=== PATIENT | female | born 1935 | race Caucasian/White ===

== ENCOUNTER 2016-06-09 05:48 | Outpatient (CLI) | payer MEDICARE ==
[~2016-06-09] VITALS: Ht 163.8 cm; Wt 77.1 kg
[~2016-06-09 05:48] MED LIST: CTRZ10T; PS30T
== END 2016-06-09 15:31 ==
LOC: PREOP 05:48
PROVIDERS: ATTEND Surgery Pediatric Surgery
DX: Z01.818 Encounter for other preprocedural examination (principal); R13.10 Dysphagia, unspecified

== ENCOUNTER 2016-06-17 10:05 | Day surgery (SDC) | payer MEDICARE ==
[~2016-06-17] VITALS: Ht 163.8 cm; Wt 77.1 kg
[2016-06-17] MEDS ORDERED: HURRICAINE EXT TUBE (BENZOCAINE) XX PRN (10:15)
[2016-06-17] MEDS ORDERED: NALOXONE 0.4 MG/ML 1 ML (NARCAN) VIAL IVP PRN (10:15)
[2016-06-17] MEDS ORDERED: LIDOCAINE JELLY 2% (XYLOCAINE) 5 ML TUBE MM PRN (10:15)
[2016-06-17] MEDS ORDERED: FLUMAZENIL (ROMAZICON) 0.1 MG/ML 5 ML VIAL INJ PRN (10:15)
--- NOTE | 2016-06-17 10:17 | Conscious Sedation/ASA ---
Conscious Sedation Pre-Proced Time Reviewed: 10:15 ASA Class: 2 Airway Mallampati Classification: (holy cross appropriate class) I. II. III, IV Lungs Heart ASA score ASA 1: a normal healthy patient ASA 2: a patient with a mild systemic disease (mid diabetes, controlled hypertension, obesity ASA 3: a patient with a severe systemic disease that limits activity (angina , COPD, prior Myocardial infarction) ASA 4: a patient with an incapacitating disease that is a constant threat to life (CHF, renal failure) ASA 5: a moribund patient not expected to survive 24 hrs. (ruptured aneurysm) ASA 6: a declared brain patient whose organs are being harvested. For emergent operations, add the letter E after the classification Grade 2 Sedation Plan: Analgesia, Amnesia, Plan communicated to team members, Discussed options with patient/fam, Discussed risks with patient/fam Note The patient is an appropriate candidate to undergo the planned procedure, sedation, and anesthesia. The patient immediately re-assessed prior to indication. GLENIS ELLISON MD June 17, 2016 10:17 am
--- NOTE | 2016-06-17 10:17 | Progress Note-Pre Operative ---
Pre-Operative Progress Note H&P Reviewed The H&P was reviewed, patient examined and no changes noted. Date H&P Reviewed: June 17, 2016 Time H&P Reviewed: 10:15 Pre-Operative Diagnosis: dysphagia GLENIS ELLISON MD June 17, 2016 10:17 am
[2016-06-17 10:25] VITALS: BP 146/79
[2016-06-17] MEDS ORDERED: ONDANSETRON 4 MG/2 ML (SDV) Z0FRAN IV PRN (10:30)
[2016-06-17] MEDS ORDERED: HYDROcodone/APAP 5 MG/325 MG (LORTAB) TAB PO PRN (10:30)
[2016-06-17] MEDS ORDERED: NS IV 500 ML 500 ML IV PRN (10:30)
[2016-06-17] MEDS ORDERED: morphine INJ 10 MG/ML 1ML (SYR OR VIAL) IV PRN (10:30)
[2016-06-17] MEDS ORDERED: ACETAMINOPHEN 325 MG TABLET/CAPLET (TYLENOL) PO PRN (10:30)
[2016-06-17] MEDS ORDERED: MIDAZOLAM 2 MG/2 ML (VERSED) VIAL ONE ×3 (10:34)
[2016-06-17] MEDS ORDERED: fentaNYL INJECTION 100 MCG/2 ML AMP ONE (10:34)
[2016-06-17] MEDS ORDERED: LIDOCAINE JELLY 2% (XYLOCAINE) 5 ML TUBE ONE (10:34)
[2016-06-17] MEDS ORDERED: HURRICAINE EXT TUBE (BENZOCAINE) ONE (10:34)
[2016-06-17] MEDS: fentaNYL INJECTION 100 MCG/2 ML AMP IVP PRN ×2 (10:45→11:10)
[2016-06-17] MEDS: MIDAZOLAM 2 MG/2 ML (VERSED) VIAL IVP PRN ×2 (11:00→11:18)
--- NOTE | 2016-06-17 11:34 | Progress Note-Post Operative ---
Post-Operative Progess Note Surgeon (s)/Cardiology Nurse (s) Surgeon GLENIS ELLISON MD Cardiology Nurse: none Pre-Operative Diagnosis dysphagia Post-Operative Diagnosis reflux esophagitis(class C with distal sticture), small HH(1.5), moderate gastritis. Procedure & Operative Findings Date of Procedure 06/17/16 Procedure Preformed/Findings EGD with bx and dilatation. Anesthesia Type CS Estimated Blood Loss Estimated blood loss (mL): minimal Specimens/Packing Specimens Removed GE jxn , antrum Packing: none GLENIS ELLISON MD June 17, 2016 11:34 am
[2016-06-17] MEDS ORDERED: PANT40TA2 PO (11:35)
--- NOTE | 2016-06-17 11:36 | Discharge Inst-Surgical ---
D/C Lap Instructions-KIDO New, Converted, or Re-Newed RX: RX on Chart Follow Up Appt in 6 weeks Activity as tolerated High Fiber Diet 25g or more per day Avoid Alcohol, Caffeine, Spicy [place] and Acid foods. Drink 64 fluid oz or more of fluids per day. Symptoms to Report: Fever over 101 degree F, Nausea/Vomiting If any problems/questions: Contact your physician or go to Emergency Room GLENIS ELLISON MD June 17, 2016 11:36 am
[2016-06-17 11:45] VITALS: BP 127/71
[2016-06-17 12:15] VITALS: BP 133/71
[2016-06-17 12:30] VITALS: BP 133/71
--- NOTE | 2016-06-17 14:02 | OPERATIVE REPORT ---
DATE OF SERVICE: 06/17/2016 DATE OF PROCEDURE: 06/17/2016 ATTENDING PHYSICIAN: Dr. Urrutia. PREOPERATIVE DIAGNOSIS: Dysphagia. POSTOPERATIVE DIAGNOSES: Reflux esophagitis class C with a distal esophageal stricture; a small hiatal hernia 1 to 1.5 cm in size; moderate severity gastritis, which was diffuse as well as antral erosions. PROCEDURE: EGD with biopsy and dilatation. SURGEON: Dr. Ellison. ANESTHESIA: Conscious sedation. ESTIMATED BLOOD LOSS: Minimal. FINDINGS: Reflux esophagitis class C with a distal esophageal stricture; small hiatal hernia 1 to 1.5 cm in size; moderate severity gastritis, which was diffuse with two small antral erosions. Pylorus and duodenum appeared normal. DISPOSITION: The patient tolerated the procedure well. INDICATIONS: The patient is an 80-year-old female, who has had issues with dysphagia since 2008. She reports that after food bolus, she would feel substernal pressure sensation and has required a previous EGDs as well as dilatation. She reports that she was started on PPI acid reducers as well as Pepcid; however, she had issues with lightheadedness and discontinued medication. She reports that her dysphagia has become intermittent; however, has worsened in the past several months. DESCRIPTION OF PROCEDURE: The patient was brought to the endoscopy suite, laid in the left lateral decubitus position. After adequate IV pain and sedative medications and conscious sedation anesthesia, the mouthpiece was applied. Endoscope was placed in the mouth, visualizing the pharynx and hypopharyngeal region. Vocal cords, epiglottis and vallecula identified and appeared to be normal. The endoscope was then gently intubated in the esophageal opening, esophagus insufflated. Endoscope was then advanced to the first, second and third portions of the esophagus at the level of the GE junction, a reflux esophagitis class C identified with a distal esophageal stricture. A biopsy was taken with forceps with visualization of good hemostasis. The endoscope was able to pass through the stricture with gentle pressure and then endoscope retroflexed, visualizing a small hiatal hernia approximately 1.5 cm in size. The stricture was also identified through this view. There was also a moderate severity gastritis, which was diffuse and there were 2 small antral erosions as well. A biopsy was taken of one of these erosions with forceps with visualization of good hemostasis. The endoscope was then advanced to the pylorus and the first and second portions of the duodenum, which appeared normal. We then proceeded with the dilatation of the distal esophageal stricture. A CRE fixed guidewire balloon was placed into the stomach and withdrawn to the area of stricture. The balloon was then insufflated at 3 atmosphere of pressure with no resistance. We then proceeded to 4.5 atmospheres of pressure or approximately a 19 mm in diameter with moderate resistance. The patient also showed discomfort, which indicated a successful dilatation. This was left in place for approximately 60 seconds. The balloon was then desufflated and removed. There were no mucosal tears as well as no active bleeding. The endoscope was then slowly withdrawn, taking a second look and suctioning of residual air with no additional findings. The patient tolerated the procedure well. We will proceed with medical management with the necessary lifestyle and diet accommodation including small or more frequent meals, avoidance of eating at night as well as head elevation while lying supine at night. She also needs to avoid caffeinated beverages; spicy, greasy and acidic foods. We will also proceed with another trial of Protonix 40 mg daily. Job ID: [id number] DocumentID: [id number] Dictated Date: 06/17/2016 11:32:39 Head Correction Officer Date: 06/17/2016 12:58:17 Dictated By: GLENIS ELLISON MD
== END 2016-06-17 12:30 | disposition home or self-care (01) ==
LOC: ENDO 10:05
PROVIDERS: ATTEND Surgery Pediatric Surgery
DX: K21.0 Gastro-esophageal reflux disease with esophagitis (principal); K22.2 Esophageal obstruction; K44.9 Diaphragmatic hernia without obstruction or gangrene; K29.60 Other gastritis without bleeding; K25.9 Gastric ulcer, unspecified as acute or chronic, without hemorrhage or perforation; Z96.641 Presence of right artificial hip joint

== ENCOUNTER → 2016-07-15 | Outpatient (CLI) | payer MEDICARE ==
[~2016-07-15] MED LIST changes: +PANT40TA2 PO
--- NOTE | 2016-07-15 11:12 | Diagnostic Imaging Report ---
INDICATION: Proteinuria. TECHNIQUE: Multiple real-time grayscale sonographic images were obtained of the kidneys. COMPARISON: None. FINDINGS: RIGHT KIDNEY: 9.0 x 4.8 x 4.5 cm. There is suggestion of some thinning of the right renal parenchyma. No hydronephrosis. LEFT KIDNEY: 8.9 x 4.6 x 3.9 cm. There does appear to be an overall somewhat thinned appearance about the left renal parenchyma with increased echogenicity. URINARY BLADDER: Relatively unremarkable in appearance. The ureteral jets, however, are not visualized. IMPRESSION: 1. Diffuse thinning of the renal parenchyma. There is also some increased echogenicity of the left renal parenchyma which may be reflective of underlying medical renal disease. No hydronephrosis or obstruction. Dictated by: Dictated on workstation # [id number]
== END ==
LOC: RAD 08:59
PROVIDERS: ATTEND Family Medicine
DX: R80.9 Proteinuria, unspecified (principal)
CPT/HCPCS: 76770

== ENCOUNTER → 2016-08-28 | Outpatient (CLI) | payer MEDICARE | LOC: RAD 12:58 | PROVIDERS: ATTEND Family Medicine | DX: Z12.31 Encounter for screening mammogram for malignant neoplasm of breast (principal) | CPT/HCPCS: 77067 ==

== ENCOUNTER 2017-08-22 08:51 | Emergency (ER) | payer MEDICARE ==
[~2017-08-22] VITALS: Ht 167.6 cm; Wt 77.1 kg
--- NOTE | 2017-08-22 09:24 | ED Upper Extremity ---
General Chief Complaint: Upper Extremity Stated Complaint: SWOLLEN WRIST Nursing Triage Note: PT AMB TO ROOM 5 W/O DIFFICULTY. A&OX4. CO RT WRIST PAIN UPON MOVEMENT. PT REPORTS SHE WAS WATERING WILLS LAST NIGHT AND FELL FORWARD ONTO HER RT WRIST. DENIES LOC. Nursing Sepsis Screen: No Definite Risk Source: patient Exam Limitations: no limitations History of Present Illness Date Seen by Provider: Aug 22, 2017 Time Seen by Provider: 09:17 Initial Comments The patient is an 81-year-old white female known to me. She was working in her garden last evening and lost her balance and fell forward. She had immediate pain in the area of the lower third of the radius on the right. She was able to use the arm. Later when she went to bed she found that sleep was fitful because of pain. She continues to be able to use the arm but the pain continues as well. Onset: just prior to arrival Pain/Injury Location: right forearm Method of Injury: fell Allergies and Home Medications Allergies Coded Allergies: No Known Drug Allergies (Unverified , 06/09/16) Home Medications Pantoprazole Sodium 40 Mg Tablet.dr, 40 MG PO DAILY Prescribed by: GLENIS ELLISON on 06/17/16 1135 Patient Home Medication List Home Medication List Reviewed: Yes Constitutional: see HPI EENTM: no symptoms reported Respiratory: no symptoms reported Cardiovascular: no symptoms reported Gastrointestinal: no symptoms reported Genitourinary: no symptoms reported Musculoskeletal: see HPI Skin: no symptoms reported Psychiatric/Neurological: No Symptoms Reported Past Deupnpt-Slialf-Vrhrwx Hx Patient Social History Alcohol Use: Denies Use Recreational Drug Use: No Smoking Status: Never a Smoker 2nd Hand Smoke Exposure: No Recent Foreign Travel: No Contact w/Someone Who Travel: No Recent Infectious Disease Expo: No Recent Hopitalizations: Yes (SEP 2015-HIP REPLACEMENT) Physical Abuse: No Sexual Abuse: No Immunizations Up To Date Date of Pneumonia Vaccine: June 09, 2014 Date of Influenza Vaccine: Nov 18, 2015 Seasonal Allergies Seasonal Allergies: Yes Past Medical History Surgeries: Yes (RT HIP. LT KNEE.) Joint Replacement, Orthopedic Respiratory: No Cardiac: No Neurological: No Reproductive Disorders: No Sexually Transmitted Disease: No HIV/AIDS: No Gastrointestinal: Yes (DYSPHAGIA) Musculoskeletal: Yes Arthritis Endocrine: No HEENT: No Loss of Vision: Bilateral Hearing Impairment: Denies Cancer: No Psychosocial: No Nursing Suicide Risk Score: 0 Integumentary: No Blood Disorders: No Adverse Reaction/Blood Tranf: No (N/A) Physical Exam Vital Signs Vital Signs - First Documented 08/22/17 08:55 Temp 97.1 Pulse 77 Resp 15 B/P (MAP) 147/86 (106) Pulse Ox 97 O2 Delivery Room Air O2 Flow Rate 0 Capillary Refill : Less Than 3 Seconds Height, Weight, BMI Height: 5'6.00" Weight: 170lbs. 0.0oz. 77.063852ps; 28.7 BMI Method:Stated General Appearance: mild distress HEENT: normal ENT inspection Neck: non-tender, full range of motion Cardiovascular: normal peripheral pulses, regular rate, rhythm, no edema, no gallop, no JVD, no murmur Respiratory: chest non-tender, lungs clear, normal breath sounds, no respiratory distress, no accessory muscle use There is no deformity of the right wrist or forearm. There are some tenderness to palpation over the right distal third of the radius. Squad Sergeant is normal. She is able to dorsiflex. Progress/Results/Core Measures Results/Orders My Orders Orders - VENKAT RAINES MD Wrist, Right, 3 Views Or More (08/22/17 09:13) Vital Signs/I&O 08/22/17 08:55 Temp 97.1 Pulse 77 Resp 15 B/P (MAP) 147/86 (106) Pulse Ox 97 O2 Delivery Room Air O2 Flow Rate 0 Blood Pressure Mean: 106 Departure Communication (Admissions) X-ray as reviewed by me shows a nondisplaced fracture in the distal right ulna Impression Primary Impression: nondisplaced fracture right distal ulna Disposition: 01 HOME, SELF-CARE Condition: Stable/Unchanged Departure-Patient Inst. Decision time for Depature: 09:38 Referrals: NOEL REINOSO DO (PCP/Family) Primary Care Physician Patient Instructions: Wrist Fracture (DC) Add. Discharge Instructions: All discharge instructions reviewed with patient and/or family. Voiced understanding. You will need to use the brace for 4-6 weeks. You may remove the brace to bathe. See your provider in 2-3 weeks for a follow-up x-ray. VENKAT RAINES MD Aug 22, 2017 09:24
--- NOTE | 2017-08-22 09:46 | Diagnostic Imaging Report ---
INDICATION: Status post fall while watering john. TECHNIQUE: 3 views of the right wrist 9:44 AM CORRELATION STUDY: None FINDINGS: There is a relatively nondisplaced transversely oriented fracture of the distal ulnar diaphysis. Distal radius is intact. There is rather advanced degenerative changes about the right wrist with joint space narrowing. There is more focal narrowing and sclerosis at the mid radial carpal row as well as at the first carpometacarpal articulation. Soft tissue swelling is noted in the area of the fracture. IMPRESSION: 1. Nondisplaced fracture of the distal right ulna with associated soft tissue swelling. Dictated by: Dictated on workstation # [id number]
[2017-08-22 09:55] VITALS: BP 147/86
--- OUTSIDE RECORDS SUMMARY | 2017-08-23 10:27 | XMS REPORT ---
Author Author KENDY MONTERROSO Organization [facility] Address [address] [place] [address] Care Team Providers Care Wheel Truer Name Role Phone KENDY MONTERROSO Unavailable PROBLEMS Type Condition ICD9-CM Code [id number] Code Onset Dates Condition Status SNOMED Code Problem Need for prophylactic vaccination and inoculation, Influenza V04.81 Active [id number] ALLERGIES No Information ENCOUNTERS Encounter Location Date Diagnosis [address], [place] [address] Nov, Encounter for immunization Z23 [address], [place] [address] Nov, [address], [place] [address] Nov, IMMUNIZATIONS Vaccine Route Administration Date Status TDAP (BOOSTRIX) IM Intramuscular Dec 04, 2016 Administered SOCIAL HISTORY Never Assessed REASON FOR VISIT TDAP -- li christina PLAN OF CARE VITAL SIGNS MEDICATIONS Unknown Medications RESULTS No Results PROCEDURES Procedure Date Ordered Result Body Site TDAP (BOOSTRIX) Dec 04, 2016 SINGLE IMMUNIZATION ADMIN Dec 04, 2016 INSTRUCTIONS MEDICATIONS ADMINISTERED No Known Medications
--- OUTSIDE RECORDS SUMMARY | 2017-08-23 10:27 | XMS REPORT | Continuity of Care Document ---
Author Author [facility] Organization [facility] Address Unknown Phone Unavailable Allergies Active Description Code Type Severity Reaction Onset Reported/Identified Relationship to Patient Clinical Status Yes No Known Drug Allergies [id number] Drug Allergy Mild N/A 11/20/2008 Yes No Known Drug Allergies [id number] Drug Allergy Unknown N/A 06/09/2016 Medications There is no data. Problems Date Dx Coded Attending Type Code Diagnosis Diagnosed By 01/07/1339 BROOKENDER DO NOEL S Ot M25.551 PAIN IN RIGHT HIP 01/07/1339 BROOKENDER DO, NOEL S Ot M54.5 LOW BACK PAIN 01/07/1339 BROOKENDER DO, NOEL S Ot M62.81 MUSCLE WEAKNESS (GENERALIZED) 09/13/2014 ANNA PEREZ MD Ot V76.12 07/01/2015 ORENDER DO, NOEL S Ot M25.551 PAIN IN RIGHT HIP 07/01/2015 ORENDER DO, NOEL S Ot M54.5 LOW BACK PAIN 07/01/2015 ORENDER DO, NOEL S Ot M62.81 MUSCLE WEAKNESS (GENERALIZED) 07/10/2015 ORENDER DO, NOEL S Ot M25.551 PAIN IN RIGHT HIP 07/10/2015 ORENDER DO, NOEL S Ot M54.5 LOW BACK PAIN 07/10/2015 ORENDER DO, NOEL S Ot M62.81 MUSCLE WEAKNESS (GENERALIZED) 07/30/2015 ORENDER DO, NOEL S Ot M25.551 PAIN IN RIGHT HIP 07/30/2015 ORENDER DO, NOEL S Ot M54.5 LOW BACK PAIN 08/05/2015 ORENDER DO, NOEL S Ot M25.551 PAIN IN RIGHT HIP 08/05/2015 ORENDER DO, NOEL S Ot M54.5 LOW BACK PAIN 08/05/2015 ORENDER DO, NOEL S Ot M62.81 MUSCLE WEAKNESS (GENERALIZED) 08/14/2015 ORENDER DO, NOEL S Ot M41.86 OTHER FORMS OF SCOLIOSIS, LUMBAR REGION 08/14/2015 ORENDER DO, NOEL S Ot M47.816 SPONDYLOSIS W/O MYELOPATHY OR RADICULOPA 08/27/2015 ORENDER DO, NOEL S Ot M25.551 PAIN IN RIGHT HIP 08/27/2015 ORENDER DO, NOEL S Ot M54.5 LOW BACK PAIN 08/28/2015 ORENDER DO, NOEL S Ot Z12.31 ENCNTR SCREEN MAMMOGRAM FOR MALIGNANT NE 08/29/2015 ORENDER DO, NOEL S Ot Z12.31 ENCNTR SCREEN MAMMOGRAM FOR MALIGNANT NE 08/30/2015 ORENDER DO, NOEL S Ot M41.86 OTHER FORMS OF SCOLIOSIS, LUMBAR REGION 08/30/2015 ORENDER DO, NOEL S Ot M47.816 SPONDYLOSIS W/O MYELOPATHY OR RADICULOPA 09/03/2015 [facility] Ot Z12.31 ENCNTR SCREEN MAMMOGRAM FOR MALIGNANT NE 09/10/2015 ORENDER DO, NOEL S Ot M25.551 PAIN IN RIGHT HIP 09/10/2015 ORENDER DO, NOEL S Ot M54.5 LOW BACK PAIN 10/01/2015 ORENDER DO, NOEL S Ot Z12.31 ENCNTR SCREEN MAMMOGRAM FOR MALIGNANT NE 12/03/2015 ORENDER DO, NOEL S Ot Z13.6 ENCOUNTER FOR SCREENING FOR CARDIOVASCUL 12/03/2015 ORENDER DO, NOEL S Ot Z13.6 ENCOUNTER FOR SCREENING FOR CARDIOVASCUL 12/03/2015 ORENDER DO, NOEL S Ot Z13.6 ENCOUNTER FOR SCREENING FOR CARDIOVASCUL 12/03/2015 ORENDER DO, NOEL S Ot Z13.6 ENCOUNTER FOR SCREENING FOR CARDIOVASCUL 12/03/2015 ORENDER DO, NOEL S Ot Z13.6 ENCOUNTER FOR SCREENING FOR CARDIOVASCUL 12/03/2015 ORENDER DO, NOEL S Ot Z13.6 ENCOUNTER FOR SCREENING FOR CARDIOVASCUL 12/04/2015 Ot V76.12 OTH SCREEN MAMMO-MALIGN NEOPLASM OF SUNDAR 12/04/2015 Ot V76.12 OTH SCREEN MAMMO-MALIGN NEOPLASM OF SUNDAR 12/04/2015 MYLA ALTMAN, HERO Miles Ot V76.12 OTH SCREEN MAMMO-MALIGN NEOPLASM OF SUNDAR 12/04/2015 CODY SARGENT, AMADO Ot 724.2 LUMBAGO 12/04/2015 MYLA ALTMAN, HERO Miles Ot V76.12 OTH SCREEN MAMMO-MALIGN NEOPLASM OF SUNDAR 12/04/2015 ANA ALTMAN, ANNA Mary Ot V76.12 OTH SCREEN MAMMO-MALIGN NEOPLASM OF SUNDAR 12/04/2015 QING REINOSO DOLINE S Ot M41.86 OTHER FORMS OF SCOLIOSIS, LUMBAR REGION 12/04/2015 QING REINOSO DOLINE S Ot M47.816 SPONDYLOSIS W/O MYELOPATHY OR RADICULOPA 12/04/2015 QING REINOSO DOLINE S Ot M25.551 PAIN IN RIGHT HIP 12/04/2015 QING REINOSO DOLINE S Ot M54.5 LOW BACK PAIN 12/04/2015 NOEL REINOSO DO S Ot Z12.31 ENCNTR SCREEN MAMMOGRAM FOR MALIGNANT NE 12/04/2015 SLIME REINOSO DOQUELINE S Ot Z13.6 ENCOUNTER FOR SCREENING FOR CARDIOVASCUL 12/24/2015 SLIME REINOSO DOQUELINE S Ot Z13.6 ENCOUNTER FOR SCREENING FOR CARDIOVASCUL 01/06/2016 NOEL REINOSO DO S Ot Z13.6 ENCOUNTER FOR SCREENING FOR CARDIOVASCUL 06/17/2016 GLENIS ELLISON MD Ot K21.0 GASTRO-ESOPHAGEAL REFLUX DISEASE WITH ES 06/17/2016 GLENIS ELLISON MD, Ot K22.2 ESOPHAGEAL OBSTRUCTION 06/17/2016 GLENIS ELLISON MD Ot K25.9 GASTRIC ULCER, UNSP ACUTE OR CHRONIC, 06/17/2016 GLENIS ELLISON MD Ot K29.60 OTHER GASTRITIS WITHOUT BLEEDING 06/17/2016 GLENIS ELLISON MD, Ot K44.9 DIAPHRAGMATIC HERNIA WITHOUT OBSTRUCTION 06/17/2016 GLENIS ELLISON MD Ot Z96.641 PRESENCE OF RIGHT ARTIFICIAL HIP JOINT 06/18/2016 KIDO MD, TAKAAKI Ot K21.0 GASTRO-ESOPHAGEAL REFLUX DISEASE WITH ES 06/18/2016 GLENIS ELLISON MD Ot K22.2 ESOPHAGEAL OBSTRUCTION 06/18/2016 GLENIS ELLISON MD Ot K25.9 GASTRIC ULCER, UNSP ACUTE OR CHRONIC, 06/18/2016 GLENIS ELLISON MD Ot K29.60 OTHER GASTRITIS WITHOUT BLEEDING 06/18/2016 GLENIS ELLISON MD Ot K44.9 DIAPHRAGMATIC HERNIA WITHOUT OBSTRUCTION 06/18/2016 GLENIS ELLISON MD Ot Z96.641 PRESENCE OF RIGHT ARTIFICIAL HIP JOINT 07/03/2016 GLENIS ELLISON MD Ot K21.0 GASTRO-ESOPHAGEAL REFLUX DISEASE WITH ES 07/03/2016 GLENIS ELLISON MD Ot K22.2 ESOPHAGEAL OBSTRUCTION 07/03/2016 GLENIS ELLISON MD Ot K25.9 GASTRIC ULCER, UNSP ACUTE OR CHRONIC, 07/03/2016 GLENIS ELLISON MD Ot K29.60 OTHER GASTRITIS WITHOUT BLEEDING 07/03/2016 GLENIS ELLISON MD Ot K44.9 DIAPHRAGMATIC HERNIA WITHOUT OBSTRUCTION 07/03/2016 GLENIS ELLISON MD Ot Z96.641 PRESENCE OF RIGHT ARTIFICIAL HIP JOINT 07/17/2016 ORENDER DO, NOEL S Ot R80.9 PROTEINURIA, UNSPECIFIED 08/04/2016 ORENDER DO, NOEL S Ot R80.9 PROTEINURIA, UNSPECIFIED 08/12/2016 ORENDER DO, NOEL S Ot R80.9 PROTEINURIA, UNSPECIFIED 09/03/2016 ORENDER DO, NOEL S Ot Z12.31 ENCNTR SCREEN MAMMOGRAM FOR MALIGNANT NE 09/21/2016 ORENDER DO, NOEL S Ot Z12.31 ENCNTR SCREEN MAMMOGRAM FOR MALIGNANT NE Procedures There is no data. Results There is no data. Encounters ACCT No. Visit Date/Time Discharge Status Pt. Type Provider Facility Loc./Unit Complaint [id number] 08/28/2016 12:58:00 08/28/2016 23:59:59 CLS Outpatient ARLETH DOSLIMENOEL S [facility] RAD SCREENING Z12.31 [id number] 07/15/2016 08:59:00 07/15/2016 23:59:59 CLS Outpatient ORENDER DO, NOEL S [facility] RAD R80.9 [id number] 06/17/2016 10:05:00 06/17/2016 12:30:00 DIS Outpatient GLENIS ELLISON MD [facility] ENDO DYSPHAGIA [id number] 06/09/2016 05:48:00 06/09/2016 15:31:00 DIS Outpatient GLENIS ELLISON MD [facility] PREOP DYSPHAGIA [id number] 12/02/2015 14:11:00 12/02/2015 23:59:59 CLS Outpatient ORENDER DO, NOEL S [facility] CARD Z13.6 [id number] 08/28/2015 15:02:00 08/28/2015 23:59:59 CLS Outpatient ORENDER DO, NOEL S [facility] RAD SCREENING [id number] 08/05/2015 12:51:00 08/05/2015 13:40:00 DIS Outpatient BROOKENDER DO NOEL S [facility] REHAB LBP;R HIP PAIN; LEG WEAKNESS [id number] 07/29/2015 15:38:00 07/29/2015 23:59:59 CLS Outpatient BROOKENDER DO, NOEL S [facility] RAD LOW BACK PAIN [id number] 07/24/2015 10:15:00 07/24/2015 23:59:59 CLS Outpatient ORENDER DO, NOEL S [facility] RAD LOW BACK PAIN [id number] 08/22/2014 15:21:00 08/22/2014 23:59:59 CLS Outpatient ANNA PEREZ MD [facility] RAD SCREENING [id number] 07/17/2013 15:31:00 07/17/2013 23:59:59 CLS Outpatient HERO LANZA MD [facility] RAD SCREENING [id number] 07/15/2012 12:27:00 07/15/2012 23:59:59 CLS Outpatient AMADO ROSS DC [facility] RAD LUMBARGO [id number] 07/15/2012 12:22:00 07/15/2012 23:59:59 CLS Outpatient MYLA ALTMAN HERO Miles [facility] RAD SCREENING [id number] 06/17/2011 15:01:00 Document Registration [id number] 07/02/2010 09:54:00 Document Registration [id number] 08/22/2014 15:22:34 ACT Document Registration [id number] 12/04/2016 13:20:00 12/04/2016 23:59:59 CLS Outpatient MICHELLE DEL [facility]IO [facility] 05/201612/14/2016 10:08:13 12/14/2016 23:59:59 CLS Outpatient
== END 2017-08-22 09:57 | disposition home or self-care (01) ==
LOC: EDUNIT# 08:51 → ER 08:54
DX: S52.601A Unspecified fracture of lower end of right ulna, initial encounter for closed fracture (principal); Z96.641 Presence of right artificial hip joint; Z96.652 Presence of left artificial knee joint; W01.198A Fall on same level from slipping, tripping and stumbling with subsequent striking against other object, initial encounter
CPT/HCPCS: 73110

== ENCOUNTER → 2018-05-06 | Outpatient (CLI) | payer MEDICARE | LOC: RAD 14:31 | PROVIDERS: ATTEND Family Medicine | DX: Z12.31 Encounter for screening mammogram for malignant neoplasm of breast (principal) | CPT/HCPCS: 77067 ==

== ENCOUNTER → 2018-08-08 | Outpatient (CLI) | payer MEDICARE | LOC: CARD 10:38 | PROVIDERS: ATTEND Nurse Practitioner Family | DX: R07.9 Chest pain, unspecified (principal) | CPT/HCPCS: 93005 ==

== ENCOUNTER → 2018-09-13 | Outpatient (CLI) | payer MEDICARE | LOC: CARD 10:35 | PROVIDERS: ATTEND Internal Medicine Interventional Cardiology | DX: R07.89 Other chest pain (principal); R94.31 Abnormal electrocardiogram [ECG] [EKG] | CPT/HCPCS: 93306 ==

== ENCOUNTER → 2018-10-13 | Outpatient (CLI) | payer MEDICARE ==
[~2018-10-13] MED LIST changes: +CATHETER FLUSH 10 ML SYR IV PRN; +REGADENOSON 0.4 MG/5 ML SYR (LEXISCAN) IV ONE
[2018-10-13 11:06] VITALS: BP 173/86
[2018-10-13 11:08] VITALS: BP 206/113
--- NOTE | 2018-10-14 12:31 | Cardiology Stress Test Report ---
Stress Test Report Type of NM Stress Test: Test Type: LEXISCAN 0.4MG/5ML Date of Procedure/Referring: Date of Procedure: Oct 13, 2018 PCP Jd Oneill MD Admitting Physician Daria Urrutia DO Indications: Chest pain Baseline Heart Rate: 55 Baseline Blood Pressure: Blood Pressure Systolic: 206 Blood Pressure Diastolic: 113 Baseline EKG: Baseline EKG: sinus rhythm Summary & Conclusion: Summary: The patient was brought to the stress lab after informed consent was taken. Stress test was performed according to the Lexiscan protocol. 0.4 mg of IV Lexiscan was given. Low-grade exercise was performed. Baseline EKG showed sinus rhythm at 55 BPM. Initial blood pressure was 173/86 mmHg. Maximum heart rate was 89 bpm and blood pressure 223/111 mmHg, repeat blood pressure 196/110 mmHg. Patient did not have any chest pain, arrhythmias or ST segment changes during the stress test. 10.77 mCi of Myoview were given for rest imaging and 31.2 mCi of Myoview given for stress imaging. Transient ischemic dilatation score 1.07 , Normal myocardial perfusion imaging during rest and stress. Conclusion: Pharmacological stress test was negative for ischemia. Normal myocardial perfusion imaging during rest and stress. Jd ONEILL MD Oct 14, 2018 12:31
== END ==
LOC: CARD 09:23
PROVIDERS: ATTEND Internal Medicine Interventional Cardiology
DX: R07.89 Other chest pain (principal); R94.31 Abnormal electrocardiogram [ECG] [EKG]

== ENCOUNTER → 2019-11-08 | Outpatient (CLI) | payer MEDICARE ==
[~2019-11-08] MED LIST changes: -CATHETER FLUSH 10 ML SYR IV PRN; -REGADENOSON 0.4 MG/5 ML SYR (LEXISCAN) IV ONE
--- NOTE | 2019-11-09 09:56 | Diagnostic Imaging Report ---
INDICATION: Routine screening. Comparison is made to prior mammogram 05/06/2018 and 08/28/2016. 2-D and 3-D bilateral screening mammography was performed with CAD. Scattered fibroglandular densities are identified bilaterally. Benign calcifications in both breasts appear stable. Intraparenchymal lymph node outer left breast is stable. No spiculated mass or malignant appearing microcalcifications are seen. Axillae are unremarkable. IMPRESSION: BI-RADS Category 2 No mammographic features suspicious for malignancy are identified. ACR BI-RADS Category 2: Benign findings. Result letter will be mailed to the patient. Note: At least 10% of breast cancer is not imaged by mammography. Dictated by: Dictated on workstation # [id number]
== END ==
LOC: RAD 12:33
PROVIDERS: ATTEND Family Medicine
DX: Z12.31 Encounter for screening mammogram for malignant neoplasm of breast (principal)
CPT/HCPCS: 77063; 77067

== ENCOUNTER 2020-11-05 05:41 | Outpatient (CLI) | payer MEDICARE ==
[~2020-11-05] VITALS: Ht 167.7 cm; Wt 78.2 kg
[2020-11-06] MEDS ORDERED: MV-M1TAB57 PO (09:01)
== END 2020-11-06 09:03 | disposition home or self-care (01) ==
LOC: PREOP 05:41
PROVIDERS: ATTEND Specialist
DX: Z01.818 Encounter for other preprocedural examination (principal)

== ENCOUNTER 2020-11-08 08:05 | Day surgery (SDC) | payer MEDICARE ==
[~2020-11-08] VITALS: Ht 167.7 cm; Wt 78.2 kg
[~2020-11-08 08:05] MED LIST changes: +MV-M1TAB57 PO
[2020-11-08] MEDS ORDERED: MIDAZOLAM 2 MG/2 ML (VERSED) VIAL ONE (08:23)
[2020-11-08] MEDS ORDERED: TIMOLOL MALEATE 0.5% 5 ML (TIMOPTIC) BTL OU PRN (08:30)
[2020-11-08] MEDS ORDERED: MOXIFLOXACIN OPHTH SOLN 5 MG/ML 0.3 ML SYRINGE OP ONE (08:30)
[2020-11-08] MEDS ORDERED: POVIDONE (BETADINE) OPHTH SOLN 5% 30 ML OP ONE (08:30)
[2020-11-08] MEDS ORDERED: LIDOCAINE PF 1% 2 ML VIAL IR PRN (08:30)
[2020-11-08] MEDS: TETRACAINE 0.5% OPHTH SOLN 4 ML BTL (SINGLE DOSE ONLY) OU PRN ×4 (08:37→08:53)
[2020-11-08] MEDS: PHENYLEPHRINE 10% OPHTH (NEO-SYN) 5 ML BTL OU SCH ×3 (08:43→08:53)
[2020-11-08] MEDS: TROPICAMIDE 1% OPH SOLN (MYDRIACYL) 15 ML BTL OP SCH ×3 (08:43→08:53)
[2020-11-08 08:44] VITALS: BP 133/75
--- NOTE | 2020-11-08 09:06 | Ophthalmologist Pre-Op Note ---
Pre-Operative Progress Note H&P Reviewed The H&P was reviewed, patient examined and no changes noted. Date H&P Reviewed: Nov 08, 2020 Time H&P Reviewed: 09:06 Pre-Op Dx Cataract, Right Eye CAT SANCHEZ MD Nov 08, 2020 09:06
--- NOTE | 2020-11-08 09:27 | Ophthalmology Operative Report ---
Cataract removal/placement IOL PREOPERATIVE DIAGNOSIS: Cataract Right Eye POSTOPERATIVE DIAGNOSIS: Cataract Right Eye PROCEDURE: Cataract removal and placement of posterior chamber implant, right eye SURGEON: Chapito Sanchez ANESTHESIA: Topical with sedation COMPLICATIONS: None ESTIMATED BLOOD LOSS: Minimal DESCRIPTION OF PROCEDURE: After proper informed consent was obtained, the patient, a 85 female, was taken to the Operating Room and the right eye was anesthetized with tetracaine. The right eye was then prepped and draped in the usual manner. A wire lid speculum was placed. A paracentesis was made at the left hand position. Preservative free lidocaine was injected into the anterior chamber followed by viscoelastic. A clear corneal incision was made in the temporal position. A capsulorrhexis was preformed and the central nuclear and cortical material were removed. The posterior capsule was polished and Anibal 20.0 AU00T0 IOL was placed into the capsular bag. The residual viscoelastic was aspirated and balanced saline solution was injected into the anterior chamber. Moxifloxacin was injected into the anterior chamber. The wound was checked and found to be water tight. The patient tolerated the procedure well without complications. CHAPITO SANCHEZ MD Nov 08, 2020 09:27
[2020-11-08] MEDS ORDERED: acetaZOLAMIDE ER 500 MG CAP (DIAMOX SEQUELS) PO ONE (09:30)
[2020-11-08 09:35] VITALS: BP 144/61
--- NOTE | 2020-11-08 13:54 | Anesthesia-General Post-Op ---
MAC Patient Condition Mental Status/LOC: Same as Preop Cardiovascular: Satisfactory Nausea/Vomiting: Absent Respiratory: Satisfactory Pain: Controlled Complications: Absent Post Op Complications Complications None Follow Up Care/Instructions Patient Instructions None needed. Anesthesiology Discharge Order Discharge Order Patient is doing well, no complaints, stable vital signs, no apparent adverse anesthesia problems. No complications reported per nursing. PING NEFF CRNA Nov 08, 2020 13:54
== END 2020-11-08 09:48 ==
LOC: SDC 08:05
PROVIDERS: ATTEND Specialist
DX: H25.11 Age-related nuclear cataract, right eye (principal); Z79.899 Other long term (current) drug therapy
CPT/HCPCS: 66984; V2632

== ENCOUNTER 2020-12-09 05:54 | Outpatient (CLI) | payer MEDICARE ==
[~2020-12-09] VITALS: Ht 167.7 cm; Wt 78.2 kg
== END 2020-12-10 15:15 | disposition home or self-care (01) ==
LOC: PREOP 05:54
PROVIDERS: ATTEND Specialist
DX: Z01.818 Encounter for other preprocedural examination (principal)

== ENCOUNTER 2020-12-13 09:44 | Day surgery (SDC) | payer MEDICARE ==
[~2020-12-13] VITALS: Ht 167 cm; Wt 78.2 kg
[2020-12-13] MEDS ORDERED: MOXIFLOXACIN OPHTH SOLN 5 MG/ML 0.3 ML SYRINGE OP ONE (10:00)
[2020-12-13] MEDS ORDERED: LIDOCAINE PF 1% 2 ML VIAL IR PRN (10:00)
[2020-12-13] MEDS ORDERED: TIMOLOL MALEATE 0.5% 5 ML (TIMOPTIC) BTL OU PRN (10:00)
[2020-12-13] MEDS: TETRACAINE 0.5% OPHTH SOLN 4 ML BTL (SINGLE DOSE ONLY) OU PRN ×4 (10:00→10:16)
[2020-12-13] MEDS ORDERED: POVIDONE (BETADINE) OPHTH SOLN 5% 30 ML OP ONE (10:00)
[2020-12-13] MEDS: PHENYLEPHRINE 10% OPHTH (NEO-SYN) 5 ML BTL OU SCH ×3 (10:06→10:16)
[2020-12-13] MEDS ORDERED: MIDAZOLAM 2 MG/2 ML (VERSED) VIAL ONE (10:06)
[2020-12-13] MEDS: TROPICAMIDE 1% OPH SOLN (MYDRIACYL) 15 ML BTL OP SCH ×3 (10:06→10:16)
[2020-12-13 10:08] VITALS: BP 132/77
--- NOTE | 2020-12-13 10:22 | Ophthalmologist Pre-Op Note ---
Pre-Operative Progress Note H&P Reviewed The H&P was reviewed, patient examined and no changes noted. Date H&P Reviewed: Dec 13, 2020 Time H&P Reviewed: 10:22 Pre-Op Dx Cataract, Left Eye CAT SANCHEZ MD Dec 13, 2020 10:22
--- NOTE | 2020-12-13 10:51 | Ophthalmology Operative Report ---
Cataract removal/placement IOL PREOPERATIVE DIAGNOSIS: Cataract Left Eye POSTOPERATIVE DIAGNOSIS: Cataract Left Eye PROCEDURE: Cataract removal and placement of posterior chamber implant, left eye SURGEON: Chapito Sanchez ANESTHESIA: Topical with sedation COMPLICATIONS: None ESTIMATED BLOOD LOSS: Minimal DESCRIPTION OF PROCEDURE: After proper informed consent was obtained, the patient, a 85 female, was taken to the Operating Room and the left eye was anesthetized with tetracaine. The left eye was then prepped and draped in the usual manner. A wire lid speculum was placed. A paracentesis was made at the left hand position. Preservative free lidocaine was injected into the anterior chamber followed by viscoelastic. A clear corneal incision was made in the temporal position. A capsulorrhexis was preformed and the central nuclear and cortical material were removed. The posterior capsule was polished and an Anibal 13.0 AU00T0 was placed into the capsular bag. The residual viscoelastic was aspirated and balanced saline solution was injected into the anterior chamber. Moxifloxacin was injected into the anterior chamber. The wound was checked and found to be water tight. The patient tolerated the procedure well without complications. CHAPITO SANCHEZ MD Dec 13, 2020 10:51
[2020-12-13 10:58] VITALS: BP 113/60
[2020-12-13] MEDS ORDERED: acetaZOLAMIDE ER 500 MG CAP (DIAMOX SEQUELS) PO ONE (11:30)
--- NOTE | 2020-12-13 12:27 | Anesthesia-General Post-Op ---
MAC Patient Condition Mental Status/LOC: Same as Preop Cardiovascular: Satisfactory Nausea/Vomiting: Absent Respiratory: Satisfactory Pain: Controlled Complications: Absent Post Op Complications Complications None Follow Up Care/Instructions Patient Instructions None needed. Anesthesiology Discharge Order Discharge Order Patient is doing well, no complaints, stable vital signs, no apparent adverse anesthesia problems. No complications reported per nursing. JAMIE RIVERA CRNA Dec 13, 2020 12:27
== END 2020-12-13 11:01 ==
LOC: SDC 09:44
PROVIDERS: ATTEND Specialist
DX: H25.12 Age-related nuclear cataract, left eye (principal); Z79.899 Other long term (current) drug therapy
CPT/HCPCS: 66984; V2632

== ENCOUNTER → 2021-08-13 | Outpatient (CLI) | payer MEDICARE ==
--- NOTE | 2021-08-14 09:41 | Diagnostic Imaging Report ---
INDICATION: Routine screening. Comparison is made with prior mammogram 11/08/2019 and 05/06/2018. 2-D and 3-D bilateral screening mammography was performed with CAD. CAD is utilized. The current study was also evaluated with a Computer Aided Detection (CAD) system. Both breasts are heterogeneously dense, limiting the sensitivity of mammography. Intraparenchymal lymph node outer left breast is stable. There are scattered benign parenchymal and vascular calcifications throughout both breasts. No spiculated mass or malignant-appearing microcalcifications are seen. Axillae are unremarkable. IMPRESSION: BI-RADS Category 2 No mammographic features suspicious for malignancy are identified. ACR BI-RADS Category 2: Benign findings. Result letter will be mailed to the patient. Note: At least 10% of breast cancer is not imaged by mammography. Dictated by: Dictated on workstation # [id number]
== END ==
LOC: RAD 14:44
PROVIDERS: ATTEND Family Medicine
DX: Z12.31 Encounter for screening mammogram for malignant neoplasm of breast (principal)
CPT/HCPCS: 77063; 77067

== ENCOUNTER 2021-10-26 08:52 | Emergency (ER) | payer MEDICARE ==
[~2021-10-26] VITALS: Ht 167 cm; Wt 79.0 kg
--- NOTE | 2021-10-26 09:46 | ED General ---
General Chief Complaint: Lower Extremity Stated Complaint: RIGHT LEG WEAKNESS Nursing Triage Note: PT AMB TO RM 6 W W/C PT CO OF R LEG WEAKNESS, STATES POSSIBLE INJURED ON WEDNESDAY DURING EXCERCISE. CAUSES PAIN WHEN TRIES TO GO UP STAIRS UP TO AN 8/10. PT STATES USING WALKER BECAUSE IT FEELS LIKE LEG WILL GIVE OUT Source of Information: Patient Exam Limitations: No Limitations (SARA MAHMOOD A MED STUDENT) History of Present Illness Date Seen by Provider: Oct 26, 2021 Time Seen by Provider: 09:38 Initial Comments Mckenzie Whiteside is an 86 yo female who presents for right leg weakness. She walked from the waiting room with a walker and showed non-antalgic gait with no foot drop or dragging of leg. Pt has hx of scoliosis, right hip replacement, left knee replacement and chronic back pain for which she follows up with Dr. Ortiz at [address] Pt reports on Wednesday she was exercising at [facility] gym and she noticed she couldn't do as many steps on the stair climber as usual and her right hip started hurting. She also felt as if this leg was "giving out on her". On Wednesday she went to the [facility] football game, which she walked quite a bit at. When she went up and down the stairs at the stadium, she had increased hip pain/weakness. Her three areas of pain are the right lower back, right hip joint and right knee joint. She rates the pain an 8/10 when walking or going up stairs, but denies pain at rest. She has had sciatic nerve pain before and states this feels different. Of note, she has been getting left hip injections with Dr. Ortiz d/t left hip and back pain. Pt reports currently she has no left hip or back pain, it is only on the right. Pt denies numbness, tingling or loss of sensation in her extremities. All other ROS is negative unless otherwise stated. Timing/Duration: 2-3 Days Modifying Factors: improves with Medication (Tylenol) Associated Systoms: Weakness (SARA MAHMOOD A MED STUDENT) Allergies and Home Medications Allergies Coded Allergies: No Known Drug Allergies (Unverified , 06/09/16) Patient Home Medication List Home Medication List Reviewed: Yes (AN ROSADO MD) Mv-Mn/Folic Acid/Calcium/Vit K (Women's 50 Plus Multivit Tab) 1 Each Tablet, 1 EACH PO DAILY, (Reported) Entered as Reported by: ANGEL AMANDA on 11/06/20 0901 Review of Systems Review of Systems Constitutional: No chills, No fever EENTM: No blurred vision, No double vision, No vision loss Respiratory: No cough, No short of breath Cardiovascular: No chest pain, No palpitations Gastrointestinal: No abdominal pain, No constipation, No diarrhea, No nausea, No vomiting Genitourinary: No dysuria, No frequency Musculoskeletal: back pain (right), joint pain (right hip) Skin: No lesions, No lumps, No rash Psychiatric/Neurological: Denies Headache, Denies Numbness, Denies Paresthesia, Denies Tingling; Weakness Hematologic/Lymphatic: No Symptoms Reported Immunological/Allergic: no symptoms reported (SARA MAHMOOD) Past Gkldmyr-Aqfjjw-Czerpu Hx Patient Social History Tobacco Use?: No Substance use?: No Alcohol Use?: No Pt feels they are or have been: No (SARA MAHMOOD) Immunizations Up To Date First/Initial COVID19 Vaccinat: 2020 Second COVID19 Vaccination Joe: 2020 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 LT KNEE.) Joint Replacement, Orthopedic Respiratory: No Cardiac: No Neurological: No Reproductive Disorders: No Sexually Transmitted Disease: No HIV/AIDS: No Gastrointestinal: Yes (DYSPHAGIA) Musculoskeletal: Yes Arthritis Endocrine: No HEENT: No Loss of Vision: Bilateral Hearing Impairment: Denies Cancer: No Psychosocial: No Integumentary: No Blood Disorders: No Adverse Reaction/Blood Tranf: No (N/A) (SARA MAHMOOD STUDENT) Physical Exam Vital Signs Vital Signs - First Documented 10/26/21 09:11 Temp 36.5 Pulse 78 Resp 18 B/P (MAP) 170/92 (118) Pulse Ox 96 (AN ROSADO MD) Vital Signs Capillary Refill : Less Than 3 Seconds (SARA MAHMOOD MED STUDENT) Height, Weight, BMI Height: 5'6.00" Weight: 170lbs. 0.0oz. [id number]; 28.00 BMI Method:Stated General Appearance: No Apparent Distress, WD/WN Eyes: Bilateral Eye Normal Inspection, Bilateral Eye PERRL, Bilateral Eye EOMI HEENT: PERRL/EOMI Neck: Full Range of Motion, Normal Inspection, Non Tender, Supple Respiratory: Chest Non Tender, Lungs Clear Cardiovascular: Regular Rate, Rhythm, No Murmur Gastrointestinal: Normal Bowel Sounds, Non Tender, Soft Back: Vertebral Tenderness (right sided sacroiliac tenderness to palpation) Extremity: No Pedal Edema, Other (right hip joint tender to palpation) Neurologic/Psychiatric: Alert, Oriented x3, Normal Mood/Affect Skin: Normal Color, Warm/Dry Lymphatic: No Adenopathy (SARA MAHMOOD MED STUDENT) Progress/Results/Core Measures Suspected Sepsis SIRS Temperature: Pulse: 78 Respiratory Rate: 18 Blood Pressure 170 /92 Mean: 118 (SARA MAHMOOD STUDENT) Results/Orders My Orders Orders - AN ROSADO MD Lumbar Spine - 2-3 Views (10/26/21 09:51) Pelvis 1 To 2 Views (10/26/21 09:51) Hydrocodone/Apap 5/325 Tablet (Lortab 5 (10/26/21 10:00) Prednisone Tablet (Deltasone Tablet) (10/26/21 10:00) (AN ROSADO MD) Medications Given in ED Current Medications Medications Dose Ordered Sig/Cory Route Start Time Stop Time Status Last Admin Dose Admin Acetaminophen/ Hydrocodone Bitart 1 ea ONCE ONCE PO 10/26/21 10:00 10/26/21 10:01 DC 10/26/21 10:08 1 EA Prednisone 50 mg ONCE ONCE PO 10/26/21 10:00 10/26/21 10:01 DC 10/26/21 10:08 50 MG (AN ROSADO MD) Vital Signs/I&O 10/26/21 09:11 Temp 36.5 Pulse 78 Resp 18 B/P (MAP) 170/92 (118) Pulse Ox 96 (AN ROSADO MD) Vital Signs/I&O Capillary Refill : Less Than 3 Seconds (SARA MAHMOOD MED STUDENT) Blood Pressure Mean: 118 Progress Note : Time: 11:19 Progress Note Hydrocodone and oral prednisone given. Pelvic Xray showed : No identified acute bony abnormality of the pelvis. Advanced multilevel degenerative changes of the imaged lower lumbar spine with lumbar dextroscoliosis. Moderate osteoarthritis of the left hip. Lumbar Spine Xray showed: 1. Lumbar dextroscoliosis with multilevel severe disc degenerative changes of the lumbar spine. Facet degenerative changes on the left at L3-L4 and left greater than right at L4-L5. (SARA MAHMOOD A MED STUDENT) Progress Note : Time: 11:27 Progress Note 86-year-old female presents with a chief complaint of concern for right leg weakness. Onset over the last 3 days. Progressive and more intense in the last 12 hours requiring her to use a walker. She is very healthy, no daily medi cations. She denies any recent traumas falls twists or injuries. She states she had to use a walker starting last night due to the "weakness". She endorses pain in the right hip and posterior superior iliac crest she is currently receiving injections in her left knee for osteoarthritis through orthopedic surgery. She has had previous right hip repair. She has known scoliosis. Denies saddle anesthesia, bowel or bladder incontinence. No numbness to the right lower extremity. No progressive pain to the right lower extremity concerning for claudication. No rashes, fevers or chills. She is active, exercising routinely 3 times a week. Physical exam remarkable for relatively normal strength in the bilateral lower extremities. She does have discomfort in the posterior hip with straight leg raise on the right. Distal pulses are intact. Skin is pink warm and dry. No edema in the right leg. No calf pain. She does complain of a little right lateral posterior/popliteal pain on palpation. Knee joint itself is stable. X-rays of the lumbar spine and pelvis/right hip show severe degenerative arthritis more pronounced at L3-L4 and L4-L5 greater on the left than the right. No significant pathology on hip pelvis x-ray Patient was treated with 50 mg of prednisone here in the department as well as a hydrocodone 5 mg tablet. She did get moderate relief of symptoms and was able to stand at the bedside and shuffled gait. I talked with her extensively about continuing to use the walker for ambulation. Possible physical therapy evaluation for strength, balance and mobility. Follow-up with Dr. Ortiz for orthopedics/evaluation of the left knee and low back. She is comfortable with this plan of care. All questions are sought and answered. Strict return precautions were provided, she verbalized understanding and is agreeable (AN ROSADO MD) Departure Impression Primary Impression: Degenerative disc disease, lumbar Disposition: 01 HOME, SELF-CARE Condition: Improved Departure-Patient Inst. Referrals: NOEL URRUTIA DO (PCP/Family) Primary Care Physician Patient Instructions: Degenerative Disc Disease (DC) Add. Discharge Instructions: Take the prednisone sent to the pharmacy as directed over a tapering dose and be sure to let Dr. Ortiz's office know. Keep doing your exercises at [place] as tolerated. Consider formal Physical Therapy referral. You may talk to Dr Urrutia's office about this. Hydrocodone can cause constipation, take a stool softener to prevent this. Drink plenty of water to stay hydrated. Take one every 6 hours as needed for pain. Use ice or heat packs to help with pain. Over the counter lidocaine patches to sore areas - follow packaging instructions. Return to the ER for re-evaluation if you have increased pain, with numbness to the leg or loss of bowel or bladder function. Use your walker at all times. Scripts Prednisone (Prednisone) 10 Mg Tab.ds.pk 10 MG PO DAILY, #42 EA Take 6 tabs(60mg)daily,decrease by 1 tab(10mg)every other day. Prov: AN ROSADO MD 10/26/21 Hydrocodone/Acetaminophen (Hydrocodone-Acetamin 7.5-325) 7.5 Mg-325 Mg Tablet 1 EACH PO Q6H PRN for PAIN-MODERATE (5-7), #15 TAB Prov: AN ROSADO MD 10/26/21 Verification and Attestation of Medical Student E/M Service A medical student performed and documented this service in my presence. I reviewed and verified all information documented by the medical student and made modifications to such information, when appropriate. I personally performed the physical exam and medical decision making. An Rosado, Oct 26, 2021,11:32 (AN ROSADO MD) Copy Copies To 1: NOEL URRUTIA [place] A MED STUDENT Oct 26, 2021 09:46 AN ROSADO MD Oct 26, 2021 11:32
[2021-10-26] MEDS ORDERED: HYDROcodone/APAP 5 MG/325 MG (LORTAB) TAB PO ONE (10:00)
[2021-10-26] MEDS ORDERED: predniSONE 20 MG TAB PO ONE (10:00)
--- NOTE | 2021-10-26 10:25 | Diagnostic Imaging Report ---
EXAMINATION: Pelvis, single view. COMPARISON: None. HISTORY: 86-year-old female, low back, pelvic, and right hip pain. FINDINGS: The pubic symphysis and sacroiliac joints are normally aligned. The left hip is not obviously dislocated. There is moderate joint space loss of the left hip. There is a right total hip prosthesis which is incompletely imaged. The imaged hardware appears intact without periprosthetic lucency. There is no identified acute fracture. There is multifocal degenerative type enthesopathy. There are advanced degenerative changes of the imaged lower lumbar spine with lumbar dextroscoliosis. IMPRESSION: 1. No identified acute bony abnormality of the pelvis. 2. Advanced multilevel degenerative changes of the imaged lower lumbar spine with lumbar dextroscoliosis. 3. Moderate osteoarthritis of the left hip. Dictated by: Dictated on workstation # [id number]
--- NOTE | 2021-10-26 10:28 | Diagnostic Imaging Report ---
EXAMINATION: Lumbar spine radiographs, 3 views. COMPARISON: July 24, 2015. HISTORY: 86-year-old female, low back and right hip pain. Leg weakness. FINDINGS: There is a lumbar dextroscoliosis. There are five lumbar-type vertebral bodies. There is multilevel severe disc height loss of the lumbar spine levels with endplate degenerative related changes. There is no identified compression deformity or fracture. There are left facet degenerative changes at L3-L4 and left greater than right facet degenerative changes at L4-L5. There are vascular calcifications. IMPRESSION: 1. Lumbar dextroscoliosis with multilevel severe disc degenerative changes of the lumbar spine. 2. Facet degenerative changes on the left at L3-L4 and left greater than right at L4-L5. Dictated by: Dictated on workstation # [id number]
[2021-10-26] MEDS ORDERED: HYDR-3817 PO (11:33)
[2021-10-26] MEDS ORDERED: PRED10TA22 PO (11:33)
[2021-10-26 11:53] VITALS: BP 170/92
== END 2021-10-26 11:48 | disposition home or self-care (01) ==
LOC: EDUNIT# 08:52 → ER 08:55
DX: M51.36 Other intervertebral disc degeneration, lumbar region (principal)
CPT/HCPCS: 72100; 72170

== ENCOUNTER → 2022-09-22 | Outpatient (CLI) | payer MEDICARE ==
[~2022-09-22] MED LIST changes: +HYDR-3817 PO; +PRED10TA22 PO
--- NOTE | 2022-09-22 17:34 | Diagnostic Imaging Report ---
PROCEDURE: US carotid duplex, bilateral. TECHNIQUE: Multiple real-time grayscale images were obtained over the carotid arteries in various projections, bilaterally. Additional spectral analysis and color Doppler duplex images were also obtained. INDICATION: Right carotid bruit. FINDINGS: Minimal carotid plaque is noted. Velocities are normal bilaterally. No velocity elevation or stenosis is detected. Both vertebral arteries show antegrade flow. IMPRESSION: No evidence of a hemodynamically significant stenosis. Parameters based on the consensus panel Alford-Scale and Doppler ultrasound criteria published December 2002, Radiology, Volume 229. DOPPLER (peak systolic velocity M/S Right Left CCA 0.72 0.78 ICA Proximal 0.56 0.54 ICA Mid 0.57 0.75 ICA Distal 0.52 0.99 RATIO 0.79 1.27 ECA 1.14 0.76 VERT 0.30 0.43 Dictated by: Dictated on workstation # [id number]
--- NOTE | 2022-09-22 17:50 | Diagnostic Imaging Report ---
PROCEDURE: US Renal Bilateral. TECHNIQUE: Multiple real-time grayscale images were obtained over the kidneys in various projections bilaterally. INDICATION: Chronic kidney disease 3B. Right kidney measures 10.4 x 4.6 x 4.2 cm, left kidney measures 8.7 x 4.6 x 4.6 cm. Renal cortices appear normal thickness but there does appear to be some increased echogenicity suggestive of medical renal disease. There appears to be a cyst in the inferior right kidney approximately 14 mm in size. Left kidney contains approximately 15 mm cyst. No calculi or hydronephrosis is detected. Bilateral ureteral jets were visualized. IMPRESSION: Bilateral renal cysts. There are findings suggestive of medical renal disease. No hydronephrosis is detected. Dictated by: Dictated on workstation # [id number]
== END ==
LOC: RAD 11:26
PROVIDERS: ATTEND Family Medicine
DX: N28.1 Cyst of kidney, acquired (principal); N18.32 Chronic kidney disease, stage 3b; R09.89 Other specified symptoms and signs involving the circulatory and respiratory systems
CPT/HCPCS: 76770; 93880

== ENCOUNTER → 2022-10-02 | Outpatient (CLI) | payer MEDICARE ==
--- NOTE | 2022-10-02 16:00 | Diagnostic Imaging Report ---
INDICATION: Routine screening COMPARISON is made prior mammogram 08/13/2021. 2-D and 3-D bilateral screening mammography was performed with CAD. Both breasts are heterogeneously dense, limiting the sensitivity of mammography. Benign-appearing nodules in both breasts appear stable. There are scattered benign-appearing parenchymal and vascular calcifications bilaterally. No spiculated mass or malignant-appearing microcalcifications are seen. Axillae are unremarkable. IMPRESSION: BI-RADS Category 2 No mammographic features suspicious for malignancy are identified. ACR BI-RADS Category 2: Benign findings. Result letter will be mailed to the patient. Note: At least 10% of breast cancer is not imaged by mammography. Dictated by: Dictated on workstation # [id number]
== END ==
LOC: RAD 14:45
PROVIDERS: ATTEND Family Medicine
DX: Z12.31 Encounter for screening mammogram for malignant neoplasm of breast (principal)
CPT/HCPCS: 77063; 77067